=== PATIENT | female | born 1945 | race Caucasian/White ===

== ENCOUNTER 2021-05-09 10:50 | Emergency (ER) | payer MEDICARE, OTHER ==
[2021-05-09 11:26] LABS: BASOPHIL 0.6 % (0-2); EOSINOPHIL 1.3 % (0-7); HCT 44.2 % (37.0-47.0); HGB 14.1 g/dl (12.5-16.0); MCH 29.3 pg (25.0-31.0); MCHC 31.9 g/dL (32.0-36.0); MCV 91.7 fL (78.0-100.0); MONOCYTE 7.1 % (0-12); MPV 12.3 fL (6.0-9.5); NEUTROPHIL 66.2 % (41-80); NRBC 0; PLT 217 K/uL (150-400); RBC 4.82 M/uL (4.20-5.40); RDW 14.1 % (11.5-14.0); WBC 4.6 K/uL (4.0-10.5)
[2021-05-09 11:27] LABS: LYMPHOCYTE 24.6 % (15-48)
[2021-05-09 11:51] LABS: ALBUMIN 3.4 g/dL (3.4-5.0); BILIRUBIN - TOTAL 0.3 mg/dL (0.2-1.0); BUN/CREAT RATIO (CALC) 17.3 RATIO; CREATININE 1.04 mg/dL (0.51-0.95); GLOBULIN (CALCULATION) 4.2 g/dL; POTASSIUM 3.8 mmol/L (3.5-5.1); TOTAL PROTEIN 7.6 g/dL (6.4-8.2)
[2021-05-09 12:16] LABS: PRO-BNP 400 pg/mL (<450)
[2021-05-09 14:49] LABS: LACTIC ACID 1.1 mmol/L (0.4-1.9)
[2021-05-09] MEDS ORDERED: PREDNISONE20 MG PO (14:54)
[2021-05-09] MEDS ORDERED: TESSALON PERLE100 M1 PO (14:54)
[2021-05-09] MEDS ORDERED: AUGMENTIN 500-1 EACH PO (14:54)
[2021-05-09] MEDS ORDERED: VENTOLIN HFA18 GM INH (14:54)
== END 2021-05-09 15:07 | disposition home or self-care (01) ==
LOC: FER 10:50
PROVIDERS: Emergency Medicine
DX: J40 Bronchitis, not specified as acute or chronic (principal); J32.9 Chronic sinusitis, unspecified; I50.9 Heart failure, unspecified; E78.5 Hyperlipidemia, unspecified; F03.90 Unspecified dementia, unspecified severity, without behavioral disturbance, psychotic disturbance, mood disturbance, and anxiety; Z79.899 Other long term (current) drug therapy; Z79.82 Long term (current) use of aspirin; Z20.822 Contact with and (suspected) exposure to COVID-19
CPT/HCPCS: 36415; 36600; 70450; 71045; 71250; 80053; 82803; 83605; 83735; 83880; 84145; 84484; 85025; 93005; 94640; 94664; J2930; U0002